=== PATIENT | male | born 1980 | race Asian ===

== ENCOUNTER 2021-03-22 17:15 | Outpatient (CLI) | payer OTHER ==
[2021-03-22 18:05] LABS: BASOPHILS # (AUTO) 0.1 K/uL (0.00-0.22); BASOPHILS % (AUTO) 0.9 % (0.0-2.0); EOSINOPHILS # (AUTO) 0.5 K/uL (0-0.4); EOSINOPHILS % (AUTO) 4.9 % (0.0-4.0); HEMATOCRIT 45.6 % (36-52); HEMOGLOBIN 15.4 g/dL (12.0-18.0); LYMPHOCYTES # (AUTO) 3.6 K/uL (2.0-11.5); LYMPHOCYTES % (AUTO) 32.4 % (20.5-51.1); MEAN CORPUSCULAR HEMOGLOBIN 32 pg (27-31); MEAN CORPUSCULAR HGB CONC 34 g/dL (33-37); MONOCYTES # (AUTO) 0.6 K/uL (0.8-1.0); MONOCYTES % (AUTO) 5.7 % (1.7-9.3); NEUTROPHILS # (AUTO) 6.3 K/uL (1.8-7.7); NEUTROPHILS % (AUTO) 56.1 % (42.2-75.2); PLATELET COUNT (AUTO) 365 K/uL (140-450); RED BLOOD CELL COUNT(AUTO) 4.85 MIL/uL (4.20-6.10); RED CELL DISTRIBUTION WIDTH 13.7 % (11.6-13.7); WHITE BLOOD COUNT (AUTO) 11.2 K/uL (4.8-10.8)
[2021-03-22 18:24] LABS: ALBUMIN 4.8 g/dL (3.4-5.0); ANION GAP 13.6 (8-16); CARBON DIOXIDE 27.9 mmol/L (21-32); CHOL/HDL RATIO 4.8 (1-4.5); POTASSIUM 4.5 mmol/L (3.5-5.1); THYROID STIMULATING HORMONE 1.07 uIU/mL (0.34-3.74); TOTAL BILIRUBIN 0.5 mg/dL (0.0-1.0)
[2021-03-22 18:39] LABS: APPEARANCE,URINE CLEAR (CLEAR); BILIRUBIN,URINE NEGATIVE (NEGATIVE); BLOOD, URINE NEGATIVE (NEGATIVE); COLOR,URINE YELLOW (YELLOW); LEUKOCYTE ESTERASE ,URINE NEGATIVE (NEGATIVE); NITRITE, URINE NEGATIVE (NEGATIVE); UGLUCOSE NEGATIVE (NEGATIVE)
[2021-03-24 09:07] LABS: T4 FREE (DIRECT) 1.32 ng/dL (0.82-1.77); VARICELLA IGG ANTIBODY 583 index (Immune >165)
== END 2021-03-22 20:17 | disposition home or self-care (01) ==
LOC: MLB 17:15
DX: Z13.1 Encounter for screening for diabetes mellitus (principal); Z13.220 Encounter for screening for lipoid disorders; Z13.0 Encounter for screening for diseases of the blood and blood-forming organs and certain disorders involving the immune mechanism; Z01.84 Encounter for antibody response examination; Z13.228 Encounter for screening for other metabolic disorders
CPT/HCPCS: 36415; 80053; 81003; 82306; 83036; 84439; 84443; 85025; 86735; 86762; 86765; 86787

== ENCOUNTER 2021-03-29 10:13 | Outpatient (CLI) | payer OTHER | END 2021-03-29 19:15 | disposition home or self-care (01) | LOC: MLB 10:13 | DX: Z13.29 Encounter for screening for other suspected endocrine disorder (principal); Z13.228 Encounter for screening for other metabolic disorders; Z13.21 Encounter for screening for nutritional disorder; Z01.84 Encounter for antibody response examination; Z13.0 Encounter for screening for diseases of the blood and blood-forming organs and certain disorders involving the immune mechanism; Z11.1 Encounter for screening for respiratory tuberculosis | CPT/HCPCS: 36415 ==